=== PATIENT | male | born 1990 | race Caucasian/White ===

== ENCOUNTER 2016-08-08 13:15 | Emergency (ER) | payer OTHER ==
[~2016-08-08] VITALS: Ht 180.3 cm; Wt 61.2 kg
[2016-08-08 13:19] VITALS: BP 126/69
[2016-08-08] MEDS ORDERED: KEPPRA500 MG PO (13:23)
--- NOTE | 2016-08-08 13:27 | NUR ---
26 YO MALE BIB EMS FROM [facility] FOR PREBOOK AWAKE AND ALERT ON ARRIVAL WITH HX OF SEIZURES, TAKES KEPPRA; DENIES N/V/D; SKIN IS PINK/WARM/DRY; AAOX4 WITH EVEN AND STEADY GAIT; LUNGS CLEAR BL; HR EVEN AND REGULAR; PT DENIES ANY FEVER, CP, SOB, OR COUGH AT THIS TIME; PATIENT STATES HEAD ACHE PAIN OF 8/10 AT THIS TIME; VSS; PATIENT POSITIONED FOR COMFORT; HOB ELEVATED; BEDRAILS UP X2; BED DOWN. ER MD MADE AWARE OF PT STATUS.
--- NOTE | 2016-08-08 13:27 | NUR ---
26 YO MALE BIB EMS FROM [facility] FOR PREBOOK AWAKE AND ALERT ON ARRIVAL WITH HX OF SEIZURES, TAKES KEPPRA; DENIES N/V/D; SKIN IS PINK/WARM/DRY; AAOX4 WITH EVEN AND STEADY GAIT; LUNGS CLEAR BL; HR EVEN AND REGULAR; PT DENIES ANY FEVER, CP, SOB, OR COUGH AT THIS TIME; PATIENT STATES HEADACHE PAIN OF 8/10 AT THIS TIME; VSS; PATIENT POSITIONED FOR COMFORT; HOB ELEVATED; BEDRAILS UP X2; BED DOWN. ER MD MADE AWARE OF PT STATUS.
--- NOTE | 2016-08-08 13:33 | NUR ---
AAO, COOPERATIVE PT BEING ASSESS BT DR MEEK AT BEDSIDE
[2016-08-08] MEDS ORDERED: levETIRAcetam 500 MG TAB PO ONE (13:40)
[2016-08-08 13:47] VITALS: BP 124/72
--- NOTE | 2016-08-08 13:55 | NUR ---
Patient discharged with v/s stable. Written and verbal after care instructions given and explained. Patient alert, oriented and verbalized understanding of instructions. Police with in custody. All questions addressed prior to discharge. ID band removed. Patient advised to follow up with PMD. Rx of KEJIM given. Patient educated on indication of medication including possible reaction and side effects. Opportunity to ask questions provided and answered.
== END 2016-08-08 13:55 ==
LOC: MED 13:15
DX: G40.909 Epilepsy, unspecified, not intractable, without status epilepticus (principal); F17.200 Nicotine dependence, unspecified, uncomplicated; Z71.6 Tobacco abuse counseling